=== PATIENT | male | born 1970 | race Hispanic/Latino ===

== ENCOUNTER 2019-04-11 15:37 | Emergency (ER) | payer SELFPAY ==
[~2019-04-11] VITALS: Ht 180.3 cm; Wt 102.5 kg
[~2019-04-11 15:37] MED LIST: ALLEGRA; ALLEGRA180 MG PO; CITALOPRAM HBR20 MG PO; DICYCLOMINE HCL10 MG PO; GABAPENTIN300 MG PO; HYDROCODON-ACE1 EAC9 PO; NEXIUM40 MG PO; NORCO 7.5-3251 EACH PO; NOSE SPRAY; PANTOPRAZOLE SO40 MG PO; SYNTHROID100 MCG PO; TYLENOL 500 MG
--- OUTSIDE RECORDS SUMMARY | 2019-04-11 15:41 | XMS REPORT ---
Author Author [facility] Address Unknown Phone Unavailable Care Team Providers Care Face Burler Name Role Phone Unavailable Unavailable Problems This patient has no known problems. Allergies, Adverse Reactions, Alerts This patient has no known allergies or adverse reactions. Medications This patient has no known medications. Encounters Start Date/Time End Date/Time Encounter Type Admission Type Attending [facility] Care Department Encounter ID 2018-10-29 00:00:00 2018-10-29 00:00:00 Outpatient [facility] [id number] 2018-10-22 00:00:00 2018-10-22 00:00:00 Outpatient [facility] [id number] 2018-10-14 00:00:00 2018-10-14 00:00:00 Outpatient [facility] [id number] 2018-10-14 00:00:00 2018-10-14 00:00:00 Outpatient [facility] [id number] 2018-10-08 00:00:00 2018-10-08 00:00:00 Outpatient [facility] [id number] 2018-09-21 11:58:30 2018-09-21 11:58:30 Outpatient [facility] [id number] 2018-09-21 10:37:27 2018-09-21 10:37:27 Outpatient [facility] [id number] 2018-09-20 00:00:00 2018-09-20 00:00:00 Outpatient [facility] [id number] 2018-09-17 00:00:00 2018-09-17 00:00:00 Outpatient [facility] [id number] 2018-09-13 00:00:00 2018-09-13 00:00:00 Outpatient [facility] [id number] 2018-09-02 00:00:00 2018-09-02 00:00:00 Outpatient [facility] [id number] 2018-08-29 00:00:00 2018-08-29 00:00:00 Outpatient [facility] [id number] 2018-08-29 00:00:00 2018-08-29 00:00:00 Outpatient [facility] [id number] 2018-08-26 14:27:21 2018-08-26 14:27:21 Outpatient [facility] [id number] 2018-08-26 00:00:00 2018-08-26 00:00:00 Outpatient [facility] [id number] 2018-08-11 00:00:00 2018-08-11 00:00:00 Outpatient [facility] [id number] 2018-08-02 14:36:27 2018-08-02 14:36:27 Outpatient [facility] [id number] 2018-07-24 00:00:00 2018-07-24 00:00:00 Outpatient [facility] [id number] 2018-07-22 10:54:47 2018-07-22 10:54:47 Outpatient [facility] [id number] 2018-07-20 00:00:00 2018-07-20 00:00:00 Outpatient [facility] [id number] 2018-07-16 09:03:59 2018-07-16 09:03:59 Outpatient [facility] [id number] 2018-07-15 00:00:00 2018-07-15 00:00:00 Outpatient [facility] [id number] 2018-07-14 13:50:36 2018-07-14 13:50:36 Outpatient [facility] [id number] 2018-07-14 10:57:24 2018-07-14 10:57:24 Outpatient [facility] [id number] 2018-07-08 14:22:52 2018-07-08 14:22:52 Outpatient [facility] [id number] 2018-07-05 12:40:23 2018-07-05 12:40:23 Outpatient [facility] [id number] 2018-06-29 12:51:33 2018-06-29 12:51:33 Outpatient [facility] [id number] 2018-06-27 00:00:00 2018-06-27 00:00:00 Outpatient [facility] [id number] 2018-06-24 00:00:00 2018-06-24 00:00:00 Outpatient [facility] [id number] 2018-06-21 13:09:47 2018-06-21 13:09:47 Outpatient [facility] [id number] 2018-06-15 07:08:07 2018-06-15 07:08:07 Outpatient [facility] [id number] 2018-06-09 09:00:37 2018-06-09 09:00:37 Outpatient [facility] [id number] 2018-06-05 00:00:00 2018-06-05 00:00:00 Outpatient [facility] [id number] 2018-06-04 08:45:34 2018-06-04 08:45:34 Outpatient [facility] [id number] 2018-05-07 08:57:10 2018-05-07 08:57:10 Outpatient [facility] [id number] 2018-04-29 13:26:36 2018-04-29 13:26:36 Outpatient [facility] [id number] 2018-04-28 08:36:26 2018-04-28 08:36:26 Outpatient [facility] [id number] 2018-04-22 00:00:00 2018-04-22 00:00:00 Outpatient [facility] [id number] 2018-03-25 00:00:00 2018-03-25 00:00:00 Outpatient [facility] [id number] 2018-03-11 12:03:14 2018-03-11 12:03:14 Outpatient [facility] [id number] 2018-03-11 10:52:52 2018-03-11 10:52:52 Outpatient [facility] [id number] 2018-03-05 07:59:34 2018-03-05 07:59:34 Outpatient [facility] [id number] 2018-02-25 14:25:12 2018-02-25 14:25:12 Outpatient [facility] [id number] 2018-02-17 12:17:04 2018-02-17 12:17:04 Outpatient [facility] [id number] 2018-02-15 00:00:00 2018-02-15 00:00:00 Outpatient [facility] [id number] 2018-02-12 14:19:17 2018-02-12 14:19:17 Outpatient [facility] [id number] 2018-02-11 14:54:40 2018-02-11 14:54:40 Outpatient [facility] [id number] 2018-02-11 00:00:00 2018-02-11 00:00:00 Outpatient [facility] [id number] 2018-02-10 10:40:03 2018-02-10 10:40:03 Outpatient [facility] [id number] 2018-01-27 10:31:48 2018-01-27 10:31:48 Outpatient [facility] [id number] 2018-01-26 00:00:00 2018-01-26 00:00:00 Outpatient [facility] [id number] 2018-01-25 10:26:07 2018-01-25 10:26:07 Outpatient [facility] [id number] 2018-01-12 13:12:55 2018-01-12 13:12:55 Outpatient [facility] [id number] 2018-01-08 10:35:57 2018-01-08 10:35:57 Outpatient [facility] [id number] 2018-01-08 00:00:00 2018-01-08 00:00:00 Outpatient [facility] [id number] 2017-12-03 09:02:45 2017-12-03 09:02:45 Outpatient [facility] [id number] 2017-12-03 08:01:38 2017-12-03 08:01:38 Outpatient [facility] [id number] 2017-12-02 13:15:34 2017-12-02 13:15:34 Outpatient [facility] [id number] 2017-11-25 00:00:00 2017-11-25 00:00:00 Outpatient [facility] [id number] 2017-11-18 12:25:08 2017-11-18 12:25:08 Outpatient [facility] [id number] 2017-11-18 10:45:09 2017-11-18 10:45:09 Outpatient [facility] [id number] 2017-11-12 09:08:49 2017-11-12 09:08:49 Outpatient [facility] [id number] 2017-10-12 11:25:27 2017-10-12 11:25:27 Outpatient [facility] [id number] 2017-09-29 12:48:16 2017-09-29 12:48:16 Outpatient [facility] [id number] 2017-09-14 00:00:00 2017-09-14 00:00:00 Outpatient [facility] [id number] 2017-09-01 00:00:00 2017-09-01 00:00:00 Outpatient [facility] [id number] 2017 15:05:52 2017 15:05:52 Outpatient [facility] [id number] 2017 13:50:37 2017 13:50:37 Outpatient [facility] [id number] 2017 00:00:00 2017 00:00:00 Outpatient [facility] [id number] 2017-07-20 11:08:54 2017-07-20 11:08:54 Outpatient [facility] [id number]
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
== END 2019-04-11 22:00 | disposition left against medical advice (07) ==
LOC: ER 15:37
DX: M25.522 Pain in left elbow (principal)

== ENCOUNTER 2020-04-14 19:39 | Emergency (ER) | payer BC, OTHER ==
[~2020-04-14] VITALS: Ht 180.3 cm; Wt 97.5 kg
--- OUTSIDE RECORDS SUMMARY | 2020-04-14 19:44 | XMS REPORT ---
Author Author Arik Chaudhary Organization [employer] Address Unknown Phone Unavailable Care Team Providers Care Broadcast Correspondent Name Role Phone Jairo Chaudhary CP Unavailable Allergies, Adverse Reactions, Alerts Substance Reaction Event Type N.K.D.A. Info Not Available Non Drug Allergy Encounters Encounter Location Date FOLLOW-UP ON LABS [facility] March 15, 2014 stomach [facility] Dec 21, 2013 Unknown [facility] Jun 30, 2014 sinus infection [facility] Jul 24, 2014 results [facility] Jan 02, 2014 Follow-Up [facility] February 27, 2014 stress test [facility] April 11, 2014 Follow-Up [facility] Jul 31, 2014 Problems Problem Type Condition ICD-9 Code Onset Dates Condition Statu s Assessment Fatigue 780.79 Active Assessment Hypothyroidism 244.9 Active Assessment Hypogonadism, male 257.2 Active Assessment Chronic sinusitis 473.9 Active Problem BMI 27.0-27.9,adult V85.23 Active Problem Diverticulosis 562.10 Active Problem Hypogonadism, male 257.2 Active Problem Hyperlipidemia 272.4 Active Problem Hiatal hernia 553.3 Active Problem Hypothyroidism 244.9 Active Problem GERD (gastroesophageal reflux disease) 530.81 Active Medications Medication Code System Code Instructions Start Date End Date Status Dosage Fexofenadine HCl [facility] [address]-76 180 MG Orally Once a day Active 1 tablet Synthroid [facility] [address]-20 50 MCG Orally Once a day Jan 02, 2014 Active 1 tablet on an empty stomach in the morning Nexium [facility] [address]-62 40 mg Orally Once a day Dec 21, 2013 Active 1 capsule Nasonex [facility] [address]-67 50 MCG/ACT Nasally Once a d ay-SAMPLED Jul 24, 2014 Active 2 sprays in each nos tril [facility] 20 mg Orally Once a day Act andrey 1 tablet Gabapentin [facility] [address]-70 300 MG Orally Twice a day Active 1 capsule Jwvejacycxs-EJVS-Aenxgng Prod Unknown 0 10-325 MG Orally fou r times a day Active Unknown Doxycycline Hyclate [facility] [address]-39 100 mg Orally twice a day (bid) Jul 24, 2014 Aug 07, 2014 Active 1 tablet AndroGel Pump [facility] [address]-14 20.25 MG/ACT (1. 62%) Transdermal Once a day March 15, 2014 Active 1 application to each shoulder Dicyclomine HCl [facility] [address]-91 10 mg Orally Twice a day Active 1 capsule Social History Social History Element Qualifiers Date Reported children . none Jul 31, 2014 Tobacco Use: . Are you a: current smoker , How many packs per day? less than a half pack, How many years have you smoked? 10-20 Jul 31, 2014 Marital Status: . single Jul 31, 2014 Do you drink alcohol? . 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
--- OUTSIDE RECORDS SUMMARY | 2020-04-14 19:44 | XMS REPORT ---
Author Author Arik Hoff Organization [employer] Address Unknown Phone Unavailable Care Team Providers Care Peoplesoft Name Role Phone Angela Hoff Unavailable Encounters Encounter Location Date FOLLOW-UP ON LABS [facility] March 15, 2014 stomach [facility] Dec 21, 2013 Unknown [facility] Jun 30, 2014 sinus infection [facility] Jul 24, 2014 results [facility] Jan 02, 2014 Unknown [facility] January 21, 2015 Follow-Up [facility] February 27, 2014 stress test [facility] April 11, 2014 Refill [facility] Dec 29, 2014 Follow-Up [facility] Jul 31, 2014 Unknown [facility] Aug 03, 2014 Problems Problem Type Condition ICD-9 Code Onset Dates Condition Statu s Problem Hyperlipidemia 272.4 Active Problem Hypogonadism, male 257.2 Active Problem BMI 27.0-27.9,adult V85.23 Active Problem Fibromyalgia 729.1 Active Problem GERD (gastroesophageal reflux disease) 530.81 Active Problem Hiatal hernia 553.3 Active Problem Diverticulosis 562.10 Active Problem Hypothyroidism 244.9 Active Medications Medication Code System Code Instructions Start Date End Date Status Dosage Duloxetine HCl [facility] [address]-60 60 MG Orally Once a day L AST REFILL Jul 31, 2014 Active 1 capsule Social History Social History [...] 2014 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
--- OUTSIDE RECORDS SUMMARY | 2020-04-14 19:44 | XMS REPORT ---
Author Author Arik Brady [facility] [employer] Address Unknown Phone Unavailable Care Team Providers Care Bulbs Farmworker Name Role Phone Antonio Brady CP Unavailable Allergies, Adverse Reactions, Alerts Substance Reaction Event Type N.K.D.A. Info Not Available Non Drug Allergy Encounters Encounter Location Date results [facility] Jan 02, 2014 Follow-Up [facility] February 27, 2014 Problems Problem Type Condition ICD-9 Code Onset Dates Condition Statu s Assessment Neck pain 723.1 Active Assessment Fatigue 780.79 Active Problem Diverticulosis 562.10 Active Problem Hypothyroidism 244.9 Active Problem BMI 27.0-27.9,adult V85.23 Active Problem Hiatal hernia 553.3 Active Assessment Hyperlipidemia 272.4 Active Problem GERD (gastroesophageal reflux disease) 530.81 Active Problem Hyperlipidemia 272.4 Active Medications Medication Code System Code Instructions Start Date End Date Status Dosage [facility] [address]-03 180 MG Orally Once a day Active 1 tablet Nexium [facility] [address]-39 40 mg Orally Once a day Dec 21, 2013 Active 1 capsule Hydrocodone-Acetaminophen [facility] [address]-79 5-500 MG Orally ev teja 6 hrs Active 1 capsule as needed [facility] [address]-85 20 mg Orally Once a day February 27, 2014 Active 1 tablet Synthroid [facility] [address]-31 50 MCG Orally Once a day Jan 02, 2014 Active 1 tablet on an empty stomach in the morning Ultram [facility] [address]-71 50 mg Orally every 6 hrs FebruaryMarch 15, 2014 Active 1 tablet as needed Social History Social History Element Qualifiers Date Reported children . none February 27, 2014 Tobacco Use: . Are you a: current smoker , How many packs per day? less than a half pack, How many years have you smoked? 10-20 February 27, 2014 Marital Status: . single February 27, 2014 Do you drink alcohol? . 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0 ng/mL) 8.1 Prostate-Specific Ag, Serum Prostate Specific Ag, Serum(-0.0-4.0 ng/mL) 1.2 Summary Purpose [employer]ClinicalWorks Submission
--- OUTSIDE RECORDS SUMMARY | 2020-04-14 19:44 | XMS REPORT ---
Author Author Arik Brady [facility] [employer] Address Unknown Phone Unavailable Care Team Providers Care School Physical Therapist Name Role Phone Antonio Brady Unavailable Allergies, Adverse Reactions, Alerts Substance Reaction Event Type N.K.D.A. Info Not Available Non Drug Allergy Encounters Encounter Location Date FOLLOW-UP ON LABS [facility] March 15, 2014 stomach [facility] Dec 21, 2013 results [facility] Jan 02, 2014 Follow-Up [facility] February 27, 2014 stress test [facility] April 11, 2014 Problems Problem Type Condition ICD-9 Code Onset Dates Condition Statu s Problem Diverticulosis 562.10 Active Problem Hypothyroidism 244.9 Active Problem BMI 27.0-27.9,adult V85.23 Active Problem Hiatal hernia 553.3 Active Assessment Chest Pain 786.50 Active Problem GERD (gastroesophageal reflux disease) 530.81 Active Problem Hyperlipidemia 272.4 Active Medications Medication Code System Code Instructions Start Date End Date Status Dosage [facility] [address]-71 40 mg Orally Once a day Dec 21, 2013 Active 1 capsule [facility]ap[facility] [address]-60 300 MG Orally Twice a day Active 1 capsule [facility]throid [facility] [address]-24 50 MCG Orally Once a day Jan 02, 2014 Active 1 tablet on an empty stomach in the morning [facility]ad[facility] [address]-29 180 MG Orally Once a day Active 1 tablet Elgrkfrtrmv-HTAE-Njvwpdg Prod Unknown 0 10-325 MG Orally fou r times a day Active Unknown Dicyclomine [facility] [address]-88 10 mg Orally Twice a day Active 1 capsule AndroGel Pump [facility] [address]-27 20.25 MG/ACT (1. 62%) Transdermal Once a day March 15, 2014 Active 1 application to each shoulder Social History Social History Element Qualifiers Date Reported children . none April 11, 2014 Tobacco Use: . Are you a: current smoker , How many packs per day? less than a half pack, How many years have you smoked? 10-20 April 11, 2014 Marital Status: . single April 11, 2014 Do you drink alcohol? . 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
--- OUTSIDE RECORDS SUMMARY | 2020-04-14 19:44 | XMS REPORT ---
Author Author Arik Fairbanks Organization [employer] Address Unknown Phone Unavailable Care Team Providers Care Drug Safety Coordinator Name Role Phone Angela Fairbanks Unavailable Encounters Encounter Location Date FOLLOW-UP ON LABS [facility] March 15, 2014 stomach [facility] Dec 21, 2013 Unknown [facility] Jun 30, 2014 sinus infection [facility] Jul 24, 2014 results [facility] Jan 02, 2014 Follow-Up [facility] February 27, 2014 stress test [facility] April 11, 2014 Follow-Up [facility] Jul 31, 2014 Unknown [facility] Aug 03, 2014 Problems Problem Type Condition ICD-9 Code Onset Dates Condition Statu s Problem Hiatal hernia 553.3 Active Problem Hypogonadism, male 257.2 Active Problem BMI 27.0-27.9,adult V85.23 Active Problem Fibromyalgia 729.1 Active Problem GERD (gastroesophageal reflux disease) 530.81 Active Problem Hyperlipidemia 272.4 Active Problem Diverticulosis 562.10 Active Problem Hypothyroidism 244.9 Active Social History Social History Element Qualifiers Date Reported children . none Jul 31, 2014 Tobacco Use: . Are you a: current smoker , How many packs per day? less than a half pack, How many years have you smoked? 10-Jul 31, 2014 Marital Status: . single Jul 31, 2014 Do you drink alcohol? . 

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
--- OUTSIDE RECORDS SUMMARY | 2020-04-14 19:44 | XMS REPORT | Continuity of Care Document ---
Author Author [facility] [employer] Address Unknown Phone Unavailable Care Team Providers Care Senior Power Scheduler Name Role Phone [employer] Unavailable Un available Problems Problem Status Onset Date Classification Date Reported Comments Source Hypothyroidism Active Problem 02/06/2015 [facility] GERD (gastroesophageal reflux disease) Active Problem [facility] Diverticulosis Active Problem 02/06/2015 [facility] Abdominal pain Active Diagnosis 06/27/2014 [facility] Neck pain Active Diagnosis 03/04/2014 [facility] Fatigue Active Diagnosis 08/02/2014 [facility] BMI 27.0-27.9,adult Active Problem 02/06/2015 [facility] Hiatal hernia Active Problem 02/06/2015 [facility] Hyperlipidemia Active Problem 02/06/2015 [facility] Hypogonadism male Active Diagnosis 06/27/2014 [facility] Rib pain on left side Active Diagnosis 06/27/2014 [facility] Impotence Active Diagnosis 06/27/2014 [facility] Chest Pain Active Diagnosis 06/27/2014 [facility] Weight loss Active Diagnosis 06/27/2014 [facility] Hypertriglyceridemia Active Diagnosis 06/27/2014 [facility] Constipation Active Diagnosis 06/27/2014 [facility] HTN (hypertension) Active Diagnosis 06/27/2014 [facility] Hypogonadism, male Active Problem 02/06/2015 [facility] Fibromyalgia Active Problem 02/06/2015 [facility] Chronic sinusitis Active Diagnosis 08/02/2014 [facility] Medications Medication Details Route Status Patient Instructions Ordering Provider Order Date Source Duloxetine HCl 1 capsule Orally Active 60 MG Orally Once a day LAST REFILL Kavya 07/31/2014 [facility] Lyrica 1 capsule Orally Active 150 MG Orally Twice a d ay Buntyn 07/31/2014 [facility] Duloxetine HCl 1 capsule Orally Active 30 mg Orally once a day Buntyn 07/31/2014 [facility] Synthroid 1 tablet Orally Active 75 MCG Orally once a da y LAST REFILL, MUST SEE DOCTOR Kavya 07/31/2014 [facility] Nasonex 2 sprays in each nostr il Nasally Active 50 MCG/ACT Nasally Once a day-SAMPLED Buntyn 07/24/2014 [facility] Doxycycline Hyclate 1 tablet Orally Active 100 mg Orally twice a day (bid) Buntyn 07/24/2014 [facility] AndroGel Pump 1 application to each shoulder Transdermal Active 20.25 MG/ACT (1.62%) Transdermal Once a day Buntyn 03/15/2014 [facility] Lipitor 1 tablet Orally Active 20 mg Orally Once a day Ghebranious 02/27/2014 [facility] Ultram 1 tablet as needed Orally Active 50 mg Orally every 6 hr s Ghebranious 02/13/2014 [facility] Synthroid 1 tablet on an empty stomach in the morning Orally No Longer Active 50 MCG Orally Once a day Pablito n 01/02/2014 [facility] Nexium 1 capsule Orally Active 40 mg Orally Once a day Buntyn 12/21/2013 [facility] Fexofenadine HCl 1 tablet Orally Active 180 MG Orally Once a da y Buntytaqueria [facility] Hydrocodone-Acetaminophen 1 ca psule as needed Orally Active 5-500 MG Orally every 6 hrs Ghebranious [facility] Dicyclomine HCl 1 capsule Orally Active 10 mg Orally Twice a da y Buntytaqueria [facility] Gabapentin 1 capsule Orally No Longer Active 300 MG Orally Twice a day Bunn [facility] Ipodcxkvjro-CLRT-Lmgybxo Prod Unknown Orally Active 10-325 MG Orally four times a day Bunn [facility] Lansoprazole 1 capsule before a meal Orally Active 30 mg Orally Once a day Ghebranious [facility] Lipitor 1 tablet Orally Active 20 mg Orally Once a day [place]ena [place] [facility] Allergies, Adverse Reactions, Alerts Substance Category Reaction Severity Reaction type Status Date Reported Comments Source N.K.D.A. Adverse Reaction Info Not Available Adverse Reaction Active 07/31/2014 [facility] Immunizations No Data Provided for This Section Results No Data Provided for This Section Pathology Reports No Data Provided for This Section Diagnostic Reports No Data Provided for This Section Consultation Notes No Data Provided for This Section Discharge Summaries No Data Provided for This Section History and Physicals No Data Provided for This Section Vital Signs Vital Sign Value Date Comments Source Weight 181 07/31/2014 [facility] Height 70 0 07/31/2014 [facility] Heart Rate 76 07/31/2014 [facility] Diastolic (mm Hg) 80 07/31/2014 [facility] Systolic (mm Hg) 100 07/31/2014 [facility] Weight 183 07/24/2014 [facility] Height 70 0 07/24/2014 [facility] Heart Rate 76 07/24/2014 [facility] Diastolic (mm Hg) 64 07/24/2014 [facility] Systolic (mm Hg) 102 07/24/2014 [facility] Weight 182 03/15/2014 [facility] Height 70 0 03/15/2014 [facility] Heart Rate 78 03/15/2014 [facility] Diastolic (mm Hg) 80 03/15/2014 [facility] Systolic (mm Hg) 110 03/15/2014 [facility] Weight 194 02/27/2014 [facility] Heart Rate 84 02/27/2014 [facility] Diastolic (mm Hg) 80 02/27/2014 [facility] Systolic (mm Hg) 110 02/27/2014 [facility] Weight 196 01/02/2014 [facility] Height 70 0 01/02/2014 [facility] Heart Rate 72 01/02/2014 [facility] Diastolic (mm Hg) 78 01/02/2014 [facility] Systolic (mm Hg) 122 01/02/2014 [facility] Weight 202 12/21/2013 [facility] Height 70 0 12/21/2013 [facility] Temperature Oral (F) 98.4 F 12/21/2013 [facility] Heart Rate 64 12/21/2013 [facility] Diastolic (mm Hg) 88 12/21/2013 [facility] Systolic (mm Hg) 126 12/21/2013 [facility] Encounters Location Location Details Encounter Type Encounter Number Reason For Visit Attending Provider ADM Date DC Date Status Source [facility] stomach [id number] 12/21/2013 12/21/2013 [facility] stomach [id number] 12/21/2013 12/21/2013 [facility] stomach [id number] 12/21/2013 12/21/2013 [facility] stomach [id number] 12/21/2013 12/21/2013 [facility] stomach [id number] 12/21/2013 12/21/2013 [facility] stomach [id number] 12/21/2013 12/21/2013 [facility] stomach [id number] 12/21/2013 12/21/2013 [facility] stomach [id number] 12/21/2013 12/21/2013 [facility] stomach [id number] 12/21/2013 12/21/2013 [facility] results [id number] 01/02/2014 01/02/2014 [facility] results [id number] 01/02/2014 01/02/2014 [facility] results [id number] 01/02/2014 01/02/2014 [facility] results [id number] 01/02/2014 01/02/2014 [facility] results [id number] 01/02/2014 01/02/2014 [facility] results [id number] 01/02/2014 01/02/2014 [facility] results [id number] 01/02/2014 01/02/2014 [facility] results [id number] 01/02/2014 01/02/2014 [facility] results [id number] 01/02/2014 01/02/2014 [facility] results [id number] 01/02/2014 01/02/2014 [facility] results [id number] 01/02/2014 01/02/2014 [facility] Follow-Up [id number] 02/27/2014 02/27/2014 [facility] Follow-Up [id number] 02/27/2014 02/27/2014 [facility] Follow-Up [id number] 02/27/2014 02/27/2014 [facility] Follow-Up [id number] 02/27/2014 02/27/2014 [facility] Follow-Up [id number] 02/27/2014 02/27/2014 [facility] Follow-Up [id number] 02/27/2014 02/27/2014 [facility] Follow-Up [id number] 02/27/2014 02/27/2014 [facility] Follow-Up [id number] 02/27/2014 02/27/2014 [facility] Follow-Up [id number] 02/27/2014 02/27/2014 [facility] Follow-Up [id number] 02/27/2014 02/27/2014 [facility] FOLLOW-UP ON LABS [id number] 03/15/2014 03/15/2014 [facility] FOLLOW-UP ON LABS [id number] 03/15/2014 03/15/2014 [facility] FOLLOW-UP ON LABS [id number] 03/15/2014 03/15/2014 [facility] FOLLOW-UP ON LABS [id number] 03/15/2014 03/15/2014 [facility] FOLLOW-UP ON LABS [id number] 03/15/2014 03/15/2014 [facility] FOLLOW-UP ON LABS [id number] 03/15/2014 03/15/2014 [facility] FOLLOW-UP ON LABS [id number] 03/15/2014 03/15/2014 [facility] FOLLOW-UP ON LABS [id number] 03/15/2014 03/15/2014 [facility] FOLLOW-UP ON LABS [id number] 03/15/2014 03/15/2014 [facility] stress test [id number] 04/11/2014 04/11/2014 [facility] stress test [id number] 04/11/2014 04/11/2014 [facility] stress test [id number] 04/11/2014 04/11/2014 [facility] stress test [id number] 04/11/2014 04/11/2014 [facility] stress test [id number] 04/11/2014 04/11/2014 [facility] stress test [id number] 04/11/2014 04/11/2014 [facility] stress test [id number] 04/11/2014 04/11/2014 [facility] stress test [id number] 04/11/2014 04/11/2014 [facility] stress test [id number] 04/11/2014 04/11/2014 [facility] Unknown [id number] 06/30/2014 06/30/2014 [facility] Unknown [id number] 06/30/2014 06/30/2014 [facility] Unknown [id number] 06/30/2014 06/30/2014 [facility] Unknown [id number] 06/30/2014 06/30/2014 [facility] Unknown [id number] 06/30/2014 06/30/2014 [facility] Unknown [id number] 06/30/2014 06/30/2014 [facility] sinus infection [id number] 07/24/2014 07/24/2014 [facility] sinus infection [id number] 07/24/2014 07/24/2014 [facility] sinus infection [id number] 07/24/2014 07/24/2014 [facility] sinus infection [id number] 07/24/2014 07/24/2014 [facility] sinus infection [id number] 07/24/2014 07/24/2014 [facility] sinus infection [id number] 07/24/2014 07/24/2014 [facility] Follow-Up [id number] 07/31/2014 07/31/2014 [facility] Follow-Up [id number] 07/31/2014 07/31/2014 [facility] Follow-Up [id number] 07/31/2014 07/31/2014 [facility] Follow-Up [id number] 07/31/2014 07/31/2014 [facility] Follow-Up [id number] 07/31/2014 07/31/2014 [facility] Follow-Up [id number] 07/31/2014 07/31/2014 [facility] Unknown [id number] 08/03/2014 08/03/2014 [facility] Unknown [id number] 08/03/2014 08/03/2014 [facility] Unknown [id number] 08/03/2014 08/03/2014 [facility] Refill [id number] 12/29/2014 12/29/2014 [facility] Refill [id number] 12/29/2014 12/29/2014 [facility] Unknown [id number] 01/21/2015 01/21/2015 [facility] Unknown [id number] 01/21/2015 01/21/2015 [facility] Unknown [id number] 02/05/2015 02/05/2015 [facility] Procedures No Data Provided for This Section Assessment and Plan No Data Provided for This Section Plan of Care No Data Provided for This Section Social History Social History Date Source Social History ElementQualifiersDate Rep orted children . none Jul 31, 2014 Tobacco Use: . Are you a: current smoker, How many p acks per day? less than a half pack, How many years have you smoked? 10-20 Jul 31, 2014 Marital Status: . single Jul 31, 2014 Do you drink alcohol? . 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, 2014 07/31/2014 [facility] Family History Value Date S ource QualifierDescriptionCommentDate Reported Father alive hypertension, hypothyroid, GERD, arthritis, depression Jul 31, 2014 Mother alive type II diabetes, neuropathy, alzheimer's dementia Jul 31, 2014 Siblings alive healthy Jul 31, 2014 08/02/2014 [facility] QualifierDescriptionCommentDate Reported Father alive hypertension, hypothyroid, GERD, arthritis, depression Jul 31, 2014 Mother alive type II diabetes, neuropathy, alzheimer's dementia Jul 31, 2014 Siblings alive healthy Jul 31, 2014 08/02/2014 [facility] QualifierDescriptionCommentDate Reported Father alive hypertension, hypothyroid, GERD, arthritis, depression Jul 31, 2014 Mother alive type II diabetes, neuropathy, alzheimer's dementia Jul 31, 2014 Siblings alive healthy Jul 31, 2014 08/02/2014 [facility] QualifierDescriptionCommentDate Reported Father alive hypertension, hypothyroid, GERD, arthritis, depression February 27, 2014 Mother alive type II diabetes, neuropathy, alzheimer's dementia February 27, 2014 Siblings alive healthy February 27, 2014 03/04/2014 [facility] QualifierDescriptionCommentDate Reported Father alive hypertension, hypothyroid, GERD, arthritis, depression Jan 02, 2014 Mother alive type II diabetes, neuropathy, alzheimer's dementia Jan 02, 2014 Siblings alive healthy Jan 02, 2014 01/11/2014 [facility] Advance Directives No Data Provided for This Section Functional Status No Data Provided for This Section
--- OUTSIDE RECORDS SUMMARY | 2020-04-14 19:44 | XMS REPORT ---
Author Author Arik Brady [facility] [employer] Address Unknown Phone Unavailable Care Team Providers Care Community Health Specialist Name Role Phone Antonio Brady Unavailable Allergies, Adverse Reactions, Alerts Substance Reaction Event Type N.K.D.A. Info Not Available Non Drug Allergy Encounters Encounter Location Date FOLLOW-UP ON LABS [facility] March 15, 2014 stomach [facility] Dec 21, 2013 results [facility] Jan 02, 2014 Follow-Up [facility] February 27, 2014 stress test [facility] April 11, 2014 Problems Problem Type Condition ICD-9 Code Onset Dates Condition Statu s Assessment Hypogonadism male 257.2 Active Assessment Rib pain on left side 786.50 Active Assessment Impotence 607.84 Active Problem Diverticulosis 562.10 Active Problem Hypothyroidism 244.9 Active Problem BMI 27.0-27.9,adult V85.23 Active Problem Hiatal hernia 553.3 Active Assessment Chest Pain 786.50 Active Problem GERD (gastroesophageal reflux disease) 530.81 Active Problem Hyperlipidemia 272.4 Active Medications Medication Code System Code Instructions Start Date End Date Status Dosage Dicyclomine HCl [facility] [address]-32 10 mg Orally Twice a day Active 1 capsule AndroGel Pump [facility] [address]-22 20.25 MG/ACT (1. 62%) Transdermal Once a day March 15, 2014 Active 1 application to each shoulder Fexofenadine HCl [facility] [address]-72 180 MG Orally Once a day Active 1 tablet Nexium [facility] [address]-73 40 mg Orally Once a day Dec 21, 2013 Active 1 capsule Gabapentin [facility] [address]-36 300 MG Orally Twice a day Active 1 capsule Synthroid 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
--- OUTSIDE RECORDS SUMMARY | 2020-04-14 19:44 | XMS REPORT ---
Author Author Arik Brady [facility] [place] eClinicalWorks Address Unknown Phone Unavailable Care Team Providers Care Retail Advertising Sales Manager Name Role Phone Antonio Brady Unavailable Allergies, Adverse Reactions, Alerts Substance Reaction Event Type N.K.D.A. Info Not Available Non Drug Allergy Encounters Encounter Location Date FOLLOW-UP ON LABS [facility] March 15, 2014 stomach [facility] Dec 21, 2013 results [facility] Jan 02, 2014 Follow-Up [facility] February 27, 2014 stress test [facility] April 11, 2014 Problems Problem Type Condition ICD-9 Code Onset Dates Condition Statu s Assessment Weight loss 783.21 Active Assessment Hypertriglyceridemia 272.1 Active Assessment Constipation 564.00 Active Problem GERD (gastroesophageal reflux disease) 530.81 Active Problem Hyperlipidemia 272.4 Active Problem Hypothyroidism 244.9 Active Assessment Hypothyroidism 244.9 Active Assessment HTN (hypertension) 401.9 Active Problem Hiatal hernia 553.3 Active Assessment Abdominal pain 789.00 Active Medications Medication Code System Code Instructions Start Date End Date Status Dosage Nexium MEDISPAN [address]-02 40 mg Orally Once a day Dec 21, 2013 Active 1 [facility] [address]-52 30 mg Orally Once a day Active 1 capsule before a meal Fexofenadine HCl [facility] [address]-13 180 MG Orally Once a day Active 1 tablet Social History Social History Element Qualifiers Date [...] maintanance April 11, 2014 Vital Signs Date/Time: Dec 21, 2013 Weight 202 lbs Height 70 in Temperature 98.4 F Cardiac Monitoring Heart Rate 64 /min Blood Pressure Diastolic 88 mm Hg Blood Pressure Systolic 126 mm Hg Results H PYLORI BREATH TEST Urine Culture, Routine CBC Platelets(- ) 246 NEUTROPHILS(- ) mid-1.1,gra-4.5 MCHC(- ) 33.3 MCH(- ) 33.2h MCV(- ) 99.7 WBC(- ) 8.0 RDW(- ) 12.4 RBC(- ) 4.61 Hemoglobin(- ) 15.3 Hematocrit(- ) 46.0 URINE AUTO W/O SCOPE Spec [place](- ) 1.015 Glucose(- ) neg Bili(- ) neg Urobilinogen(- ) 0.2 pH(- ) 5.0 Blood(- ) neg Ketones(- ) neg Nitrite(- ) neg Protein(- ) neg Leuk Est(- ) neg Lipid Panel Amylase, Serum TSH Comp. Metabolic Panel (14) Abdomen/Pelvis wo contrast CT Lipase, Serum Summary Purpose eClinicalWorks Submission
--- OUTSIDE RECORDS SUMMARY | 2020-04-14 19:44 | XMS REPORT ---
Author Author Arik Ibrahim Organization eClinicalWorks Address Unknown Phone Unavailable Care Team Providers Care Furniture Salesperson Name Role Phone Jessie Ibrahim Unavailable Encounters Encounter Location Date results [facility] Jan 02, 2014 Problems Problem Type Condition ICD-9 Code Onset Dates Condition Statu s Problem Hypothyroidism 244.9 Active Problem GERD (gastroesophageal reflux disease) 530.81 Active Problem Diverticulosis 562.10 Active Assessment Abdominal pain 789.00 Active Assessment Hypothyroidism 244.9 Active Assessment Diverticulosis 562.10 Active Medications Medication Code System Code Instructions Start Date End Date Status Dosage Synthroid [facility] [address]-91 50 MCG Orally Once a day Jan 02, 2014 Active 1 tablet on an empty stomach in the morning Nexium [facility] [address]-14 40 mg Orally Once a day Dec 21, 2013 Active 1 capsule Fexofenadine HCl [facility] [address]-89 180 MG Orally Once a day Active 1 tablet Social History Social History Element Qualifiers Date Reported children . none Jan 02, 2014 Tobacco Use: . Are you a: current smoker , How many packs per day? less than a half pack, How many years have you smoked? 10-20 Jan 02, 2014 Marital Status: . single Jan 02, 2014 Do you drink alcohol? . 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
--- OUTSIDE RECORDS SUMMARY | 2020-04-14 19:44 | XMS REPORT ---
Author Author Arik Fairbanks Organization eClinicalWorks Address Unknown Phone Unavailable Care Team Providers Care Drapery Worker Name Role Phone Angela Fairbanks Unavailable Encounters Encounter Location Date FOLLOW-UP ON LABS [facility] March 15, [address] [facility] Dec 21, [address] [facility] Jun 30, [address] [facility] Jul 24, [address] [facility] Jan 02, 2014 Follow-Up [facility] February 27, [address] [facility] April 11, 2014 [address] [facility] Jul 31, 2014 Problems Problem Type Condition ICD-9 Code Onset Dates Condition Statu s Problem Diverticulosis 562.10 Active Problem Hypothyroidism 244.9 Active Problem BMI 27.0-27.9,adult V85.23 Active Problem Hiatal hernia 553.3 Active Problem GERD (gastroesophageal reflux disease) 530.81 Active Problem Hyperlipidemia 272.4 Active Medications Medication Code System Code Instructions Start Date End Date Status Dosage Synthroid MEDISPAN [address]-31 50 MCG Orally Once a day Jan 02, 2014 Active 1 tablet on an empty stomach in the morning Social History Social History Element Qualifiers Date [...] 2014 Siblings alive healthy Jul 31, 2014 Summary Purpose eClinicalWorks Submission
--- OUTSIDE RECORDS SUMMARY | 2020-04-14 19:44 | XMS REPORT ---
Author Author Arik Hoff Organization eClinicalWorks Address Unknown Phone Unavailable Care Team Providers Care Flexographic Press Plate Setter Name Role Phone Angela Hoff Unavailable Encounters Encounter Location Date FOLLOW-UP ON LABS [facility] March 15, 2014 stomach [facility] Dec 21, 2013 Unknown [facility] Jun 30, [address] [facility] Jul 24, 2014 results [facility] Jan 02, 2014 Unknown [facility] January 21, 2015 Follow-Up [facility] February 27, 2014 Unknown [facility] February 04, 2015 stress test [facility] April 11, 2014 Refill [facility] Dec 29, 2014 Follow-Up [facility] Jul 31, 2014 Unknown [facility] [...] Date End Date Status Dosage Synthroid MEDISPAN [address]-39 75 MCG Orally on ce a day LAST REFILL, MUST SEE DOCTOR Jul 31, 2014 Active 1 tablet Social History Social History [...]
--- OUTSIDE RECORDS SUMMARY | 2020-04-14 19:44 | XMS REPORT ---
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 Info Not Available Non Drug Allergy Encounters Encounter Location Date FOLLOW-UP ON LABS [facility] [place] [facility] March 15, 2014 stomach [facility] Dec 21, 2013 Unknown [facility] Jun 30, 2014 sinus infection [facility] Jul 24, 2014 results [facility] Jan 02, 2014 Follow-Up [facility] February 27, 2014 stress test [facility] April 11, 2014 Follow-Up [facility] Jul 31, 2014 Problems Problem Type Condition ICD-9 Code Onset Dates Condition Statu s Assessment Hyperlipidemia 272.4 Active Problem Hiatal hernia 553.3 Active Assessment Fibromyalgia 729.1 Active Problem Hypogonadism, male 257.2 Active Problem BMI 27.0-27.9,adult V85.23 Active Problem Fibromyalgia 729.1 Active Problem GERD (gastroesophageal reflux disease) 530.81 Active Problem Hyperlipidemia 272.4 Active Problem Diverticulosis 562.10 Active Problem Hypothyroidism 244.9 Active Assessment Hypothyroidism 244.9 Active Assessment GERD (gastroesophageal reflux disease) 530.81 Active Assessment Hypogonadism, male 257.2 Active Medications Medication Code System Code Instructions Start Date End Date Status Dosage Fexofenadine HCl MEDISPAN [address]-34 180 MG Orally Once a day Active 1 tablet Lyrica MEDISPAN [address]-67 150 MG Orally Twice a day Jul 31, 2014 Active 1 capsule Nexium MEDISPAN [address]-57 40 mg Orally Once a day Dec 21, 2013 Active 1 capsule Duloxetine HCl [facility] [address]-66 60 MG Orally Once a day Jul Active 1 capsule Lipitor [facility] [id number] 20 mg Orally Once a day Act andrey 1 tablet Synthroid MEDISPAN [address]-45 50 MCG Orally Once a day Jan 02 4 Inactive 1 tablet on an empty stomach in the morn ing Gabapentin MEDISPAN [address]-55 300 MG Orally Twice a day Inactive 1 capsule AndroGel Pump [facility] [address]-31 20.25 MG/ACT (1. 62%) Transdermal Once a day March 15, 2014 Active 1 application to each shoulder Duloxetine HCl [facility] [address]-16 30 mg Orally once a day Jul Active 1 capsule Dicyclomine HCl [facility] [address]-93 10 mg Orally Twice a day Active 1 capsule Synthroid MEDISPAN [address]-30 75 MCG Orally Once a day Jul 31 14 Active 1 tablet Nasonex [facility] [address]-91 50 MCG/ACT Nasally Once a d ay-SAMPLED Jul 24, 2014 Active 2 sprays in each nos tril Doxycycline Hyclate [facility] [address]-52 100 mg Orally twice a day (bid) Jul 24, 2014 Aug 07, 2014 Active 1 tablet [id number] Prod Unknown 0 10-325 MG Orally fou [...] Jul 31, 2014 Vital Signs Date/Time: Jul 31, 2014 Weight 181 lbs Height 70 in Cardiac Monitoring Heart Rate 76 /min Blood Pressure Diastolic 80 mm Hg Blood Pressure Systolic 100 mm Hg Summary Purpose eClinicalWorks Submission
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
[2020-04-14 20:04] VITALS: BP 142/101
--- NOTE | 2020-04-14 20:10 | Emergency Department Note ---
History of Present Illnes History of Present Illness Chief Complaint: General Medicine Complaints History of Present Illness This is a 49 year old male presents with complaint of neck and shoulder pain 6 years. Patient has history of herniated disc and cervical spine. States he came in today because he just started having pain all the time. Has appointment with his doctor on Thursday.. Historian: Patient Arrival Mode: Car Onset (how long ago): year(s) (6) Location: neck and shoulders Quality: pain Radiation: non-radiation Severity: moderate Onset quality: gradual Duration (how long): month(s) (6 years) Progression: unchanged Chronicity: chronic Context: recent illness, recent surgery Relieving factors: none Exacerbating factors: movement Associated symptoms: denies other symptoms Past Medical/Family History Physician Review I have reviewed the patient's past medical and family history. Any updates have been documented here. Past Medical History Recent Fever: No Clinical Suspicion of Infectio: No New/Unexplained Change in Ment: No Past Medical History: Hypertension, Diabetes, Hypothyroidism, Anxiety, Dep ression, Hyperlipedemia, Chronic Back Pain Other Medical History: NEUROPATHY Past Surgical History: Appendectomy, Back Surgery Other Surgery: NECK AND BACK FUSION Social History Smoking Cessation: Never Smoker Alcohol Use: Occasional Any Illegal Drug Use: No Other Last Tetanus: UNK Review of Systems Review of Systems Constitutional: no symptoms EENTM: no symptoms Cardiovascular: no symptoms Respiratory: no symptoms Gastrointestinal: no symptoms Genitourinary: no symptoms Musculoskeletal: as per HPI Neurological: no symptoms Psychological: no symptoms Endocrine: no symptoms Hematological/Lymphatic: no symptoms Review of other systems All other systems reviewed and negative. Physical Exam Related Data Allergies: Coded Allergies: No Known Allergies (Unverified , 06/04/16) Triage Vital Signs Vital Signs Date Time Temp Pulse Resp B/P (MAP) Pulse Ox O2 Delivery O2 Flow Rate FiO2 04/14/20 19:52 98.7 79 20 142/101 96 Vital signs reviewed: Yes Physical Exam CONSTITUTIONAL Constitutional: well-developed, well-nourished HENT HENT: normocephalic, atraumatic, oropharynx clear/moist, nose normal HENT L/R: left ext ear normal, right ext ear normal EYES Eyes: PERRL, conjunctivae normal NECK Neck: ROM normal PULMONARY Pulmonary: effort normal, breath sounds normal CARDIOVASCULAR Cardiovascular: regular rhythm, heart sounds normal, capillary refill normal, normal rate GASTROINTESTINAL Abdominal: soft, nontender, bowel sounds normal GENITOURINARY Genitourinary: exam deferred SKIN Skin: warm, dry MUSCULOSKELETAL Musculoskeletal: ROM normal, other (tenerness to bilataral trapezius muscles) NEUROLOGICAL Neurological: alert, oriented x 3, no gross motor or sensory deficits PSYCHOLOGICAL Psychological: mood/affect normal, judgement normal Critical Care Time Subsequent provider I assumed direction of critical care for this patient from another provider of my specialty. Assessment & Plan Assessment & Plan Final Impression: (1) Chronic neck and back pain Assessment & Plan Patient with chronic neck upper back and shoulder pain for 6 years. Had a long discussion patient about chronic pain management. Suggest that he talk to his doctor about getting into a pain management physician. Per [facility] aware patient not had any narcotic scripts in over 6 months. Naproxen 500 mg by mouth twice a day #14 prescribed. Tylenol No. 3 one by mouth every 6 hours when necessary pain prescribed. Patient referred to Dr. Robbins pain management. Depart Disposition: HOME, SELF-CARE Last Vital Signs Date Time Temp Pulse Resp B/P (MAP) Pulse Ox O2 Delivery O2 Flow Rate FiO2 04/14/20 19:52 98.7 79 20 142/101 96 Home Meds Reported Medications Pantoprazole Sodium* (PROTONIX) 40 Mg Tablet., 40 MG PO DAILY, TAB 06/04/16 Levothyroxine Sodium (SYNTHROID) 100 Mcg Tab, 100 MCG PO 0600, #30 TAB 06/04/16 Citalopram Hydrobromide (CITALOPRAM HBR) 20 Mg Tablet, 40 MG PO DAILY, TAB 06/04/16 Fexofenadine Hcl (DILLON) 180 Mg Tablet, 180 MG PO DAILY 02/15/14 TORREY BARNHART MD Apr 14, 2020 20:10
== END 2020-04-14 20:16 | disposition home or self-care (01) ==
LOC: ER 19:39
DX: M54.2 Cervicalgia (principal); M25.512 Pain in left shoulder; M25.511 Pain in right shoulder; I10 Essential (primary) hypertension; E11.9 Type 2 diabetes mellitus without complications; E78.5 Hyperlipidemia, unspecified; E03.9 Hypothyroidism, unspecified; F41.9 Anxiety disorder, unspecified
CPT/HCPCS: 99282

== ENCOUNTER 2023-02-27 20:08 | Emergency (ER) | payer OTHER ==
[~2023-02-27] VITALS: Ht 180.3 cm; Wt 97.5 kg
[2023-02-27] MEDS ORDERED: KETOROLAC TROMETHAMINE 60 MG/2 ML VIAL IM ONE (20:45)
== END 2023-02-27 21:52 | disposition home or self-care (01) ==
LOC: ER 20:12
DX: R50.9 Fever, unspecified (principal); M54.50 Low back pain, unspecified; I10 Essential (primary) hypertension; E11.40 Type 2 diabetes mellitus with diabetic neuropathy, unspecified; E78.5 Hyperlipidemia, unspecified; E03.9 Hypothyroidism, unspecified; F41.9 Anxiety disorder, unspecified; M54.9 Dorsalgia, unspecified; G89.29 Other chronic pain
CPT/HCPCS: 99282; J1885